=== PATIENT | female | born 2005 | race Two or more races ===

== ENCOUNTER 2025-01-26 18:58 | Emergency (ER) | payer BC, SELFPAY ==
[2025-01-26 20:13] VITALS: BP 122/79; PULSE 103; RESP 18; TEMP 36.7; O2SAT 99; BMI 22.5
--- NOTE | 2025-01-26 20:14 | ED.HA ---
HPI - Headache General Chief Complaint: Upper Respiratory Symptoms Stated Complaint: Migraine, nasal congestion, sinus infection sympto Time Seen by Provider: 01/26/25 22:24 Source: patient Mode of arrival: ambulatory Limitations: no limitations History of Present Illness ED Provider: Dr. Atiya Hou HPI Narrative: patient comes to the emergency room complaining headache, nasal congestion, left ear pain, facial pain. Patient denies fever chills. Patient states it came couple of days. Patient denies any chest pain or shortness of breath, denies nausea vomiting or diarrhea. Related Data Previous Rx's ?Medication ?Instructions ?Recorded doxylamin 12.5 mg-PSE 10 mg-DM 20 1 packet PO Q4H PRN cold symptoms 01/26/25 mg-acetaminophen 650 mg oral pwdr #6 ea pk (Jana-Cantwell Plus Cold-Flu) ibuprofen 600 mg tablet 600 mg PO QID PRN fever or pain 01/26/25 #14 tabs sodium chloride 0.65 % nasal spray 2 spray intranasal Q2H PRN nasal 01/26/25 aerosol (Saline Mist) congestion #44 mL Allergies Allergy/AdvReac Type Severity Reaction Status Date / Time No Known Allergies Allergy Verified 01/26/25 20:17 Review of Systems Review of Systems: Constitutional : No Weight loss, No Fever, No Chills, No Night Sweats, No Fatigue, No Malaise ENT/Mouth : No Hearing loss, Complaining of bilateral facial pain, left-sided ear pain, runny nose congestion Eyes: No Eye Pain, No Swelling, No Redness, No Foreign Body, No Discharge, No Vision Changes Cardiovascular : No Chest Pain, No SOB, No Dyspnea on Exertion, No Orthopnea, No Edema, No Palpitations Respiratory : No Cough, No Sputum, No Wheezing, No Smoke Exposure, No Dyspnea Gastrointestinal : No Nausea, No Vomiting, No Diarrhea, No Constipation, No abdominal Pain, No Hematochezia, No Melena Genitourinary : no irregular bleeding, No Dysuria, No Urinary Frequency, No Hematuria, No Urinary Incontinence, No Urgency, No Flank Pain, No Urinary Flow Changes, No Hesitancy Musculoskeletal : No joint pain, No Myalgias, No Joint Swelling Skin : No Skin Lesions, No rash Neuro : No Weakness, No Numbness, No Paresthesias, No Loss of Consciousness, No Dizziness, No Headache Psych : No Anxiety/Panic, No Depression, No SI/HI/AH/VH, No Social Issues, Heme/Lymph: No Bruising, No Bleeding,No Lymphadenopathy Endocrine : No Polyuria, No Polydipsia, No Temperature Intolerance [facility] Social History Social History Advance Directives: No Advance Directives Information Provided: No Do you have a plan to hurt others: No Plan Physical Exam Vital Signs: Vital Signs: Last Vital Signs Temp 98.9 F 01/26/25 22:18 Pulse 93 01/26/25 22:18 Resp 20 01/26/25 22:18 BP 143/83 H 01/26/25 22:18 Pulse Ox 96 01/26/25 22:18 O2 Del Method Room Air 01/26/25 22:18 BMI result Body Mass Index 22.5 Const: Other: Appearance: Alert. Oriented X3. No acute distress. Eyes: Pupils equal, round and reactive to light. ENT: Pharynx normal, no exudates, no abscesses. No vesicles. Bilateral tympanic membranes within normal limits, no erythema Neck: Normal inspection. Neck supple. No lymph nodes noted. No crepitus CVS: Normal heart rate and rhythm. Pulses normal. Normal S1 and S2 Respiratory: No respiratory distress. Breath sounds normal. No Wheezing. No rales Abdomen: Soft and nontender. No rigidity. No distention. Skin: Skin warm and dry. Normal skin color. Normal skin turgor. Extremities: No lower extremity edema. No Lacerations. No Rash Neuro: Oriented X 3. No motor deficit. No sensory deficit. Moving all extremities. No slurred speech. CN 2 through 12 grossly intact Psych: calm, cooperative, normal affect Course Course Course Narrative: This is a Rapid Medical Exam performed in triage by Blanka Hnason PA-C. Full HPI, ROS and PE to be performed by primary ED provider. 19 yo F w/no sig PMHx presenting to the ED c/o ALANIZ, sinus pressure & congestion x today. denies fever, cough PE: +congestion, talking in complete sentences, nontoxic appearing Plan: rapid strep, SARs Medical Decision Making Medical Decision Making [facility] Narrative: my interpretation of labs: Patient tested negative for RSV, COVID, influenza and strep patient states that her headache is much better. Discussed with the patient that she has a viral URI Lab Data [facility] Lab Attestation statement: I reviewed the patient's lab results. Labs: Lab Results 01/26/25 Range/Units 20:18 Influenza Type A (PCR) NEGATIVE (Negative) Influenza Type B (PCR) NEGATIVE (Negative) RSV RNA Qual (PCR) NEGATIVE (Negative) SARS-CoV-2 RNA (RT-PCR) NEGATIVE (Negative) S. pyogenes GrpA CHRISTIAN Negative (Negative) Discharge Plan Discharge Clinical Impression: Viral URI, Sinusitis Patient Disposition: Home, Self-Care Instructions: Viral Syndrome (ED) Additional Instructions: Please follow-up with your primary care physician tomorrow. If you have any worsening or new symptoms, please return to the emergency room or call 911. your medications were sent to the [facility] on [id number] in [place], [place] Prescriptions: New Jana-Cantwell Plus Cold-Flu 12.5-10-20-650 mg powder in packet 1 packet PO Q4H PRN (Reason: cold symptoms) Qty: 6 0RF Rx Instructions: DNExceed 5 doses/24h Saline Mist 0.65 % aerosol,spray 2 spray intranasal Q2H PRN (Reason: nasal congestion) Qty: 44 0RF ibuprofen 600 mg tablet 600 mg PO QID PRN (Reason: fever or pain) Qty: 14 0RF Stand Alone Forms: Work/School Release Print Language: Pashto
[2025-01-26 20:31] LABS: IDNOW Serial# 6674DD1D; Strep A Nucleic Acid Negative (Negative)
[2025-01-26 21:00] LABS: Influenza A PCR NEGATIVE (Negative); Influenza B PCR NEGATIVE (Negative); Resp Syncy Virus RNA Qual PCR NEGATIVE (Negative); SARS COV2 PCR INHOUSE NEGATIVE (Negative)
[2025-01-26 22:18] VITALS: BP 143/83; PULSE 93; RESP 20; TEMP 37.2; O2SAT 96
[2025-01-26 22:49] VITALS: BP 143/83; PULSE 93; RESP 20; TEMP 37.2; O2SAT 96
== END 2025-01-26 22:49 | disposition home or self-care (01) ==
PROVIDERS: Physician Assistant; Emergency Provider Emergency Medicine
DX: J01.90 Acute sinusitis, unspecified (principal); Z03.818 Encounter for observation for suspected exposure to other biological agents ruled out
CPT/HCPCS: 0241U; 87651; 99282; 99283